=== PATIENT | female | born 1970 | race Caucasian/White ===

== ENCOUNTER → 2023-07-15 | Outpatient (REF) | payer BC, SELFPAY | LOC: DHSLP | PROVIDERS: ATTENDING PHYSICIAN Otolaryngology; FAMILY PHYSICIAN Internal Medicine | DX: G47.33 Obstructive sleep apnea (adult) (pediatric) (principal); R06.83 Snoring; R13.12 Dysphagia, oropharyngeal phase; H60.8X3 Other otitis externa, bilateral | CPT/HCPCS: 95806 ==